=== PATIENT | female | born 1990 | race Caucasian/White ===

== ENCOUNTER 2016-11-05 06:17 | Emergency (ER) | payer OTHER ==
[~2016-11-05] VITALS: Ht 154.9 cm; Wt 73.5 kg
[~2016-11-05 06:17] MED LIST: HYDR-3498 PO; NAPR-688 PO
[2016-11-05 06:18] VITALS: Ht 154.9 cm; Wt 73.5 kg
--- NOTE | 2016-11-05 08:05 | ERD ---
ER Documentation Chief Complaint Date/Time DATE: 11/05/16 TIME: 08:01 Chief Complaint CHEST PRESSURE, DIZZINESS, VISION LOSS, SHAKING X 3WEEKS HPI This is a 25-year-old female who has a history of anxiety and migraines complaining of 3 weeks of dizziness, chest pressure, and occasional blurry vision as well as shakiness. She is currently breast-feeding. She denies any fever, nausea, or vomiting. She takes anti-inflammatories for her headaches otherwise she is not taking any medications. ROS All systems reviewed and are negative except as per history of present illness. Medications Home Meds Active Scripts Naproxen* (Naproxen*) 500 Mg Tablet, 500 MG PO BID Y for PAIN, #30 TAB Prov:DIPESH BEE PA-C 11/03/14 Hydrocodone Bit-Acetaminophen* ([place]*) 5-325 Mg Tab, 1 TAB PO Q6 Y for PAIN, # 14 TAB Prov:DIPESH BEE PA-C 11/03/14 Allergies Allergies: Coded Allergies: Penicillins (Verified Adverse Reaction, RASH, 09/26/12) PMhx/Soc History of Surgery: No Anesthesia Reaction: No Hx Neurological Disorder: No Hx Respiratory Disorders: No Hx Cardiac Disorders: Yes (HEART MURMUR) Hx Psychiatric Problems: Yes (ANXIETY) Hx Miscellaneous Medical Probl: No Hx Alcohol Use: No Hx Substance Use: No Hx Tobacco Use: No Smoking Status: Never smoker FmHx Family History: No diabetes Physical Exam Vitals Vital Signs Date Time Temp Pulse Resp B/P Pulse Ox O2 Delivery O2 Flow Rate FiO2 11/05/16 06:18 96.3 48 18 139/66 100 Physical Exam General: well developed, well nourished, alert, nontoxic, no distress Head: normocephalic, atraumatic Neck: Supple, nontender, no lymphadenopathy, no midline tenderness Respiratory: Clear to auscaultation bilaterally, speaks in full sentences, no use of accesory muscles or labored breathing, no rales, ronchi, or wheezing Cardiovascular: RRR, No murmurs GI: soft, non tender, non distended, negative murphys sign, negative mcburneys point tenderness, no cva tenderness bilaterally, no rebound or guarding Results 24 hrs Laboratory Tests Test 11/05/16 07:44 Bedside Glucose 89mg/dL Procedures/[facility] This is a 25-year-old female with history of anxiety and migraine headaches complaining of symptoms that are consistent with anxiety. She has a low heart rate of 48 however this is normal for her and I reviewed her past medical records and she has had heart rate consistent with this in the past. Her EKG shows bradycardia otherwise no evidence of acute ST elevation or ischemic changes. Her blood sugar Accu-Chek was within normal limits. I do believe this is anxiety however I do not discharge her with any anxiety medications given she is currently breast-feeding. Recommended this patient follow up with her primary care doctor within 48 hours or return to the emergency room for any worsening of symptoms. However this time I do believe there is suitable for outpatient management. I answered all their questions and they agreed with the plan and were discharged home. Departure Diagnosis: Primary Impression: Anxiety Condition: Stable DEISI MANSFIELD PA-C Nov 05, 2016 08:05
== END 2016-11-05 08:12 | disposition home or self-care (01) ==
LOC: FTE 06:17
DX: F41.9 Anxiety disorder, unspecified (principal)
CPT/HCPCS: 82962; 93005; Z7502

== ENCOUNTER 2017-04-25 23:27 | Emergency (ER) | payer SELFPAY ==
[~2017-04-25] VITALS: Ht 157.5 cm; Wt 74.8 kg
[2017-04-25 23:35] VITALS: Ht 157.5 cm; Wt 74.8 kg
--- NOTE | 2017-04-26 00:15 | ERD ---
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 The pain is worse for the last week, worse with menstrual. She denies fever, chills, neck pain, chest pain, abdominal pain, vomiting, dysuria, diarrhea. He does not smoke, drink socially, denies h/o STD. LMP= 04/16/17 Medical history: Anxiety Surgical history: None ROS All systems reviewed and are negative except as per history of present illness. Medications Home Meds Active Scripts Ibuprofen* (Motrin*) 600 Mg Tab, 600 MG PO Q6, #20 TAB Prov:DANDRE AUGUSTINE MD 04/26/17 Naproxen* (Naproxen*) 500 Mg Tablet, 500 MG PO BID Y for PAIN, #30 TAB Prov:DIPESH BEE PA-C 11/03/14 Hydrocodone Bit-Acetaminophen* ([place]*) 5-325 Mg Tab, 1 TAB PO Q6 Y for PAIN, # 14 TAB Prov:DIPESH BEE PA-C 11/03/14 Allergies Allergies: Coded Allergies: Penicillins (Verified Adverse Reaction, RASH, 09/26/12) PMhx/Soc History of Surgery: No Anesthesia Reaction: No Hx Neurological Disorder: No Hx Respiratory Disorders: No Hx Cardiac Disorders: Yes (HEART MURMUR) Hx Psychiatric Problems: Yes (ANXIETY) Hx Miscellaneous Medical Probl: No Hx Alcohol Use: No Hx Substance Use: No Hx Tobacco Use: No Physical Exam Vitals Vital Signs Date Time Temp Pulse Resp B/P Pulse Ox O2 Delivery O2 Flow Rate FiO2 04/25/17 23:35 99.0 84 20 134/68 100 Physical Exam Const: No acute distress. Head: Atraumatic. Eyes: Normal Conjunctiva. ENT: Normal External Ears, Nose and Mouth. Neck: Full range of motion. No meningismus. Resp: Clear to auscultation bilaterally. Cardio: Regular rate and rhythm. Abd: Soft, non distended, normal bowel sounds, non tender. Minimal left pelvic discomfort Skin: No petechiae or rashes. Back: No midline or flank tenderness. Ext: No cyanosis, or edema. Neur: Awake and alert. No focal deficit Psych: Normal Mood and Affect. Results 24 hrs Laboratory Tests Test 04/26/17 00:42 Bedside Urine pH (LAB) 6.5 Bedside Urine Protein (LAB) Negative Bedside Urine Glucose (UA) Negative Bedside Urine Ketones (LAB) Negative Bedside Urine Blood Negative Bedside Urine Nitrite (LAB) Negative Bedside Urine Leukocyte Esterase (L Negative Current Medications Medications (Trade) Dose Ordered Sig/Debra Route PRN Reason Start Time Stop Time Status Last Admin Dose Admin Acetaminophen/ Hydrocodone Bitart ([place] (5/325)) 1 tab ONCE ONCE PO 04/26/17 00:30 04/26/17 00:31 DC 04/26/17 00:42 Ondansetron HCl (Zofran Odt) 4 mg ONCE STAT ODT 04/26/17 00:25 04/26/17 00:27 DC 04/26/17 00:42 Procedures/[place] [id number] Radiology Main Line: [phone] DIAGNOSTIC IMAGING REPORT Patient: LUZ MARINA BURRELL : 1990 Age: 26 Sex: F MR #: [id number] DOS: 04/26/17 0025 Ordering MD: DANDRE AUGUSTINE MD Location: [facility] Room/Bed: PROCEDURE: US Pelvis. CLINICAL INDICATION: Pain. Last menstrual period 04/15/2017 TECHNIQUE: Multiple sonographic images of the pelvis were obtained utilizing a transabdominal technique. The images were reviewed on a PACS workstation. COMPARISON: None. FINDINGS: The uterus measures 8.6 x 4.5 x 5.8 cm. The thickness of the endometrium equals 1.9 cm. The right ovary measures 3 x 1.4 x 2.3 cm and is unremarkable. The left ovary measures 3.4 x 2.8 x 2.4 cm and is unremarkable and contains a 1.7 cm follicle. Color flow and spectral analysis demonstrates normal arterial and venous flow in both ovaries. No adnexal mass or free intrapelvic fluid is seen. IMPRESSION: Abnormally thickened endometrium. There is the suggestion of small amount of fluid in the endometrial cavity. Please see above. Transvaginal ultrasound would be useful. RPTAT: HJES .Talha Roberts MD, MD Date Time Electronically viewed and signed by .Talha Roberts MD, MD on 04/26/2017 01:25 .S/ CC: DANDRE AUGUSTINE MD [place] [id number] Radiology Main Line: [phone] DIAGNOSTIC IMAGING REPORT Patient: LUZ MARINA BURRELL : 1990 Age: 26 Sex: F MR #: [id number] DOS: 04/26/17 0138 Ordering MD: DANDRE AUGUSTINE MD Location: [facility] Room/Bed: PROCEDURE: US Pelvis. CLINICAL INDICATION: Pain. Last menstrual period 04/15/2017 TECHNIQUE: Multiple sonographic images of the pelvis were obtained utilizing an endovaginal technique. The images were reviewed on a PACS workstation. COMPARISON: US PELVIS 04/26/2017 FINDINGS: The uterus measures 9.2 x 4.5 x 6.1 cm and is unremarkable. The thickness of the endometrium equals 1.75 cm. Small Nabothian cyst in the cervix. The right ovary is not seen. The left ovary measures 3.3 x 1.7 x 2.8 cm and is unremarkable and contains a 1.7 cm follicle. Color flow and spectral analysis demonstrates normal arterial flow in the left ovary. No adnexal mass or free intrapelvic fluid is seen. IMPRESSION: Abnormally thickened endometrium. Differential diagnosis includes endometrial polyp and hyperplasia. Right ovary not seen. The right ovary is unremarkable on trans abdominal ultrasound performed earlier the same day. Please see above. RPTAT: HJES .Talha Roberts MD, MD Date Time Electronically viewed and signed by .Talha Roberts MD, MD on 04/26/2017 02:22 .S/ CC: DANDRE AUGUSTINE MD MEDICAL MAKING DECISION: The patient is a 26-year-old female, presenting with pelvic pain of unclear etiology, is stable for outpatient follow-up. She was treated with [place] 5 mg p.o. for pain and Zofran ODT for nausea with good response The differential diagnoses considered include but are not limited to PID, ovarian cyst, endometriosis, fibroids, appendicitis, ovarian torsion, uti. Departure Diagnosis: Primary Impression: Acute pain in female pelvis Condition: Good Comments The patient's blood pressure was elevated (>120/80) but appears stable without evidence of hypertension emergency or urgency. The patient was counseled about the risks of hypertension and urged to pursue outpatient monitoring and therapy within a week with their primary care physician. She was discharge with Motrin I discussed the findings with the patient. I advised the patient to follow-up with her supervisor asphalt paving in about 1-2 days, sooner if needed and return if any concern. Disclaimer: Inadvertent spelling and grammatical errors are likely due to EHR/ dictation software use and do not reflect on the overall quality of patient care. Also, please note that the electronic time recorded on this note does not necessarily reflect the actual time of the patient encounter. DANDRE AUGUSTINE MD Apr 26, 2017 00:15
[2017-04-26] MEDS ORDERED: ONDANSETRON (ODT) 4 MG TAB ODT STA (00:25)
[2017-04-26] MEDS ORDERED: HYDROCODONE/APAP (5/325) TAB PO ONE (00:30)
[2017-04-26 00:42] LABS: URINE BLOOD (Dip) POC Negative (NEGATIVE)
--- NOTE | 2017-04-26 01:25 | RADRPT ---
PROCEDURE: US Pelvis. CLINICAL INDICATION: Pain. Last menstrual period 04/15/2017 TECHNIQUE: Multiple sonographic images of the pelvis were obtained utilizing a transabdominal tech nique. The images were reviewed on a PACS workstation. COMPARISON: None. FINDINGS: The uterus measures 8.6 x 4.5 x 5.8 cm. The thickness of the endometrium equals 1.9 cm. The right o vary measures 3 x 1.4 x 2.3 cm and is unremarkable. The left ovary measures 3.4 x 2.8 x 2.4 cm and i s unremarkable and contains a 1.7 cm follicle. Color flow and spectral analysis demonstrates normal arterial and venous flow in both ovaries. No adnexal mass or free intrapelvic fluid is seen. IMPRESSION: Abnormally thickened endometrium. There is the suggestion of small amount of fluid in the endometria l cavity. Please see above. Transvaginal ultrasound would be useful. RPTAT: HJES .Talha Roberts MD, Date Time Electronically viewed and signed by .Talha Roberts MD, on 04/26/2017 01:25 .S/
--- NOTE | 2017-04-26 02:22 | RADRPT ---
PROCEDURE: US Pelvis. CLINICAL INDICATION: Pain. Last menstrual period 04/15/2017 TECHNIQUE: Multiple sonographic images of the pelvis were obtained utilizing an endovaginal techni que. The images were reviewed on a PACS workstation. COMPARISON: US PELVIS 04/26/2017 FINDINGS: The uterus measures 9.2 x 4.5 x 6.1 cm and is unremarkable. The thickness of the endometrium equals 1.75 cm. Small Nabothian cyst in the cervix. The right ovary is not seen. The left ovary measures 3 .3 x 1.7 x 2.8 cm and is unremarkable and contains a 1.7 cm follicle. Color flow and spectral analys is demonstrates normal arterial flow in the left ovary. No adnexal mass or free intrapelvic fluid i s seen. IMPRESSION: Abnormally thickened endometrium. Differential diagnosis includes endometrial polyp and hyperplasia. Right ovary not seen. The right ovary is unremarkable on trans abdominal ultrasound performed nehemias ier the same day. Please see above. RPTAT: HJES .Talha Roberts MD, MD Date Time Electronically viewed and signed by .Talha Roberts MD, on 04/26/2017 02:22 .S/
[2017-04-26] MEDS ORDERED: IBUP-1542 PO (02:40)
== END 2017-04-26 02:51 | disposition home or self-care (01) ==
LOC: FTE 23:27
DX: R10.2 Pelvic and perineal pain (principal)
CPT/HCPCS: 76830; 76856; 81003

== ENCOUNTER 2017-07-21 22:17 | Emergency (ER) | END 2017-07-22 02:15 | disposition home or self-care (01) ==